=== PATIENT | female | born 1975 ===

== ENCOUNTER 2023-07-17 11:13 | Outpatient (CLI) | payer BC ==
[~2023-07-17 11:13] MED LIST: MEDROXYPROGESTE10 MG PO
[2023-07-17 11:52] LABS: HEMATOCRIT 39.2 % (36.0-45.00); HEMOGLOBIN 12.8 g/dL (12.0-15.00); MEAN CELL VOLUME 83.2 fL (80.00-100.00); MEAN CORPUSCULAR HEMOGLOBIN 27.3 pg (27.00-32.0); MEAN CORPUSCULAR HGB CONC 32.7 g/dl (32.0-36.0); PLATELET COUNT 263 K/uL (150-450); RED BLOOD COUNT 4.71 M/uL (4.00-6.00); RED CELL DISTRIBUTION WIDTH 14.2 % (11.5-14.5)
[2023-07-17 12:32] LABS: ALBUMIN 3.6 gm/dL (3.4-5.0); BILIRUBIN TOTAL 0.91 mg/dL (0.3-1.2); CALCIUM 9.4 mg/dL (8.5-10.1); CREATININE SERUM 0.81 mg/dL (0.55-1.02); GFR 75.47; GLOBULINA 4.2 G/DL (2.4-3.5); POTASSIUM 4.09 mEq/L (3.5-5.1); TOTAL PROTEIN 7.8 gm/dL (6.4-8.2)
[2023-07-17 13:14] LABS: TSH 0.596 uIU/mL (0.358-3.74)
[2023-07-17 14:51] LABS: PH,URINE 5.5 (5.0-8.0); URINE APPEARANCE Cloudy; URINE BILIRRUBIN Negative (NEGATIVE); URINE BLOOD Small; URINE COLOR Yellow; URINE GLUCOSE Negative (NEGATIVE); URINE LEUKOCYTE Large; URINE NITRATE Positive; URINE PROTEIN Trace (NEGATIVE); URINE UROBILINOGEN 0.2 E.U./dl
[2023-07-17 14:55] LABS: URINE EPITHELIAL CELLS 24.1 uL (0.0-38.8); URINE RBC 2.7 uL (0.0-20.8); URINE WBC 3115.2 uL (0.0-23.2)
[2023-07-17 15:07] LABS: URINE BACTERIA > 9821.5 uL (0.0-1933)
== END 2023-07-17 11:14 | disposition home or self-care (01) ==
LOC: LAB 11:13
DX: R63.5 Abnormal weight gain (principal); Z13.1 Encounter for screening for diabetes mellitus; Z13.220 Encounter for screening for lipoid disorders; M62.81 Muscle weakness (generalized)

== ENCOUNTER 2023-07-27 12:18 | Outpatient (CLI) | payer BC | END 2023-07-27 14:31 | disposition home or self-care (01) | LOC: MAMO-SONO 12:18 | PROVIDERS: ATTEND Surgery | DX: N60.11 Diffuse cystic mastopathy of right breast (principal); N60.12 Diffuse cystic mastopathy of left breast; Z12.31 Encounter for screening mammogram for malignant neoplasm of breast ==